=== PATIENT | male | born 1975 | race American Indian/Alaskan Native ===

== ENCOUNTER 2019-11-16 14:05 | Emergency (ER) | payer MEDICAID ==
--- NOTE | 2019-11-16 14:27 | EDM.PDOC ---
ED HPI GENERAL MEDICAL PROBLEM - General Chief Complaint: Skin Complaint Time Seen by Provider: 11/16/19 14:17 Source of Information: Reports: Patient - History of Present Illness INITIAL COMMENTS - FREE TEXT/NARRATIVE: Gamal is a 44 y/o male who presents to the ER with a rash on his neck and upper chest and back region that appeared over the last 1-2 days. It is quite itchy and he is unsure what caused it. He has been using OTC hydrocortisone cream to it with little relief. He has never had this before. 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) Other Treatments POWER ENGINEER: cortisone cream - Related Data Allergies Allergy/AdvReac Type Severity Reaction Status Date / Time Hayfever Allergy Cannot Uncoded 11/16/19 14:07 Remember Home Meds: Home Meds diphenhydrAMINE HCL [Benadryl] 50 mg PO 6XDAY #24 capsule 11/16/19 [Rx] methylPREDNISolone [Medrol] 4 mg PO ASDIRECTED #21 dospk 11/16/19 [Rx] Past Medical History - Past Surgical History GI Surgical History: Reports: Other (See Below) Other GI Surgeries/Procedures: esophageal surgery Musculoskeletal Surgical History: Reports: Other (See Below) Other Musculoskeletal Surgeries/Procedures:: 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 Social & Family History - Tobacco Use Smoking Status *Q: Current Every Day Smoker Years of Tobacco use: 20 Packs/Tins Daily: 0.5 - Alcohol Use Days Per Week of Alcohol Use: 5 Number of Drinks Per Day: 6 Total Drinks Per Week: 30 - Recreational Drug Use Recreational Drug Use: No ED ROS GENERAL - Review of Systems Review Of Systems: See Below Constitutional: Reports: No Symptoms HEENT: Reports: No Symptoms Respiratory: Reports: No Symptoms Cardiovascular: Reports: No Symptoms Endocrine: Reports: No Symptoms GI/Abdominal: Reports: No Symptoms : Reports: No Symptoms Musculoskeletal: Reports: No Symptoms Skin: Reports: Rash Neurological: Reports: No Symptoms Psychiatric: Reports: No Symptoms Hematologic/Lymphatic: Reports: No Symptoms Immunologic: Reports: No Symptoms ED EXAM, SKIN/RASH Exam: See Below Exam Limited By: No Limitations General Appearance: Alert, WD/WN, No Apparent Distress (Adult Male) Ears: Hearing Grossly Normal Nose: Normal Inspection, Normal Mucosa Throat/Mouth: Normal Inspection, Normal Lips, Normal Teeth, Normal Gums, Normal Voice Head: Atraumatic, Normocephalic Neck: Supple, Other Respiratory/Chest: No Respiratory Distress Cardiovascular: Other (Not examined) GI/Abdominal: Soft (Male) Exam: Deferred Rectal (Males) Exam: Deferred Back Exam: Normal Inspection Extremities: Normal Inspection, Normal Range of Motion, No Pedal Edema, Normal Capillary Refill Neurological: Alert, Oriented, CN II-XII Intact, Normal Cognition Psychiatric: Normal Affect Skin: Warm, Dry, Intact, Rash (note erythematous macules and papules on neck and upper chest and back region ) Location, Skin: Neck Characteristics: Macular, Papular Associated features: Warmth Lymphatic: No Adenopathy Course - Vital Signs Text/Narrative:: The patient was seen by the [facility]. No labs or diagnostics indicated. Questions answered. Patient was given discharge instructions and sent home from the ER in stable condition. Last Recorded V/S: Last Vital Signs Temp 36.0 C L 11/16/19 14:05 Pulse 90 11/16/19 14:05 Resp 20 11/16/19 14:05 BP 150/97 H 11/16/19 14:05 Pulse Ox 96 11/16/19 14:05 Departure - Departure Time of Disposition: 14:25 Disposition: Home, Self-Care 01 Condition: Good Clinical Impression: Urticaria - Discharge Information *PRESCRIPTION DRUG MONITORING PROGRAM REVIEWED*: No *COPY OF PRESCRIPTION DRUG MONITORING REPORT IN PATIENT VISHAL: No Prescriptions: diphenhydrAMINE HCL [Benadryl] 50 mg PO 6XDAY #24 capsule methylPREDNISolone [Medrol] 4 mg PO ASDIRECTED #21 dospk Instructions: Rogelio Additional Instructions: -Diphenhydramine 25mg tablets-2 tablets every 6 hours x 48 hours then every 6 hours as needed (Use over the counter meds) -Medrol Dose Pack 4 mg oral as directed in package #21(Rx) -May continue with the Hydrocortisone cream as needed -Attempt to identify the causative agent, but many times this is not possible. If so, avoid the trigger. -If the rash is not better in the next few days, follow up with your PCP. -Return to the ER for any concerns Sepsis Event Note (ED) - Evaluation Sepsis Screening Result: No Definite Risk - Focused Exam Vital Signs: Vital Signs Temp Pulse Resp BP Pulse Ox 11/16/19 14:05 36.0 C L 90 20 150/97 H 96 - Assessment/Plan Assessment:: 1)Urticaria
== END 2019-11-16 14:45 | disposition home or self-care (01) ==
LOC: VM.ED 14:05
DX: L50.9 Urticaria, unspecified (principal); F17.210 Nicotine dependence, cigarettes, uncomplicated; Z91.048 Other nonmedicinal substance allergy status
CPT/HCPCS: 99282

== ENCOUNTER 2022-04-08 16:53 | Emergency (ER) | payer SELFPAY ==
[2022-04-08] MEDS: Lidocaine 1% 10 ML MDV INJECT ONE (17:05)
[2022-04-08] MEDS: cefTRIAXone 1 GM, Lidocaine 1% 2.1 ML IM ONE ×2 (17:21)
== END 2022-04-08 17:30 | disposition home or self-care (01) ==
LOC: VM.ED 16:53
DX: S01.00XA Unspecified open wound of scalp, initial encounter (principal); L08.9 Local infection of the skin and subcutaneous tissue, unspecified; Z72.0 Tobacco use; Z91.048 Other nonmedicinal substance allergy status
CPT/HCPCS: 96372; 99282; 99284; J0696